=== PATIENT | female | born 1990 | race American Indian/Alaskan Native ===

== ENCOUNTER 2017-09-17 22:54 | Emergency (ER) | payer SELFPAY ==
[2017-09-18 01:30] LABS: Hematocrit 38.6 % (30.3-42.9); Hemoglobin 13.1 gm/dl (10.1-14.3); Mean Corpuscular HGB Conc 34 % (30-34); Mean Corpuscular Hemoglobin 32 pg (28-32); Mean Corpuscular Volume 93 fl (79-97); Platelet Count 263 K/mm3 (140-440); Red Blood Count 4.17 M/mm3 (3.65-5.03); Red Cell Distribution Width 14.2 % (13.2-15.2)
[2017-09-18 01:43] LABS: Basophils % (Auto) 0.4 % (0.0-1.8); Eosinophils # (Auto) 0.2 K/mm3 (0.0-0.4); Eosinophils % (Auto) 2.2 % (0.0-4.3); Lymphocytes # (Auto) 4.4 K/mm3 (1.2-5.4); Lymphocytes % (Auto) 44.9 % (13.4-35.0); Monocytes # (Auto) 0.8 K/mm3 (0.0-0.8); Monocytes % (Auto) 8.2 % (0.0-7.3)
[2017-09-18 08:15] VITALS: BP 112/62
--- NOTE | 2017-09-18 08:45 | Emergency Department Report ---
ED General Adult HPI - General Chief complaint: Vaginal Bleeding Stated complaint: VAGINAL BLEEDING Time Seen by Provider: 09/18/17 08:11 Source: patient Mode of arrival: Ambulatory Limitations: No Limitations - History of Present Illness Initial comments: Patient presents to emergency department with complaint of vaginal bleeding. Patient states that her lastcycle was August 01 and she has had a positive test at home. Patient also complains of some abdominal cramping. Patient denies any other associated symptoms except for nausea. -: Gradual Radiation: non-radiation Severity scale (0 -10): 1 Quality: other (cramping) Consistency: constant Improves with: none Worsens with: none Associated Symptoms: denies other symptoms Treatments Prior to Arrival: none - Related Data Allergies Allergy/AdvReac Type Severity Reaction Status Date / Time No Known Allergies Allergy Unverified 09/18/17 00:46 ED Review of Systems ROS: Stated complaint: VAGINAL BLEEDING Other details as noted in HPI Comment: All other systems reviewed and negative Constitutional: denies: chills, fever Eyes: denies: eye pain, eye discharge, vision change ENT: denies: ear pain, throat pain Respiratory: denies: cough, shortness of breath, wheezing Cardiovascular: denies: chest pain, palpitations Endocrine: no symptoms reported Gastrointestinal: denies: abdominal pain, nausea, diarrhea Genitourinary: denies: urgency, dysuria, discharge Musculoskeletal: denies: back pain, joint swelling, arthralgia Skin: denies: rash, lesions Neurological: denies: headache, weakness, paresthesias Psychiatric: denies: anxiety, depression Hematological/Lymphatic: denies: easy bleeding, easy bruising ED Past Medical Hx - Past Medical History Previous Medical History?: No - Surgical History Past Surgical History?: No - Social History Smoking Status: Never Smoker Substance Use Type: None ED Physical Exam - General Limitations: No Limitations General appearance: alert, in no apparent distress - Head Head exam: Present: atraumatic, normocephalic - Eye Eye exam: Present: normal appearance, PERRL, EOMI - ENT ENT exam: Present: mucous membranes moist - Neck Neck exam: Present: normal inspection - Respiratory Respiratory exam: Present: normal lung sounds bilaterally. Absent: respiratory distress, wheezes, rales, rhonchi - Cardiovascular Cardiovascular Exam: Present: regular rate, normal rhythm. Absent: systolic murmur, diastolic murmur, rubs, gallop - GI/Abdominal GI/Abdominal exam: Present: soft, normal bowel sounds. Absent: distended, tenderness - Rectal Rectal exam: Present: deferred - External exam: Present: other (deferred) Speculum exam: Present: other (deferred) - Extremities Exam Extremities exam: Present: normal inspection - Back Exam Back exam: Present: normal inspection - Neurological Exam Neurological exam: Present: alert, oriented X3, CN II-XII intact. Absent: motor sensory deficit - Psychiatric Psychiatric exam: Present: normal affect, normal mood - Skin Skin exam: Present: warm, dry, intact, normal color. Absent: rash ED Course Vital Signs 09/18/17 09/18/17 00:10 08:14 Temperature 98.4 F Pulse Rate 85 73 Respiratory 18 16 Rate Blood Pressure 110/69 Blood Pressure 112/62 [Left] O2 Sat by Pulse 100 100 Oximetry ED Medical Decision Making - Lab Data Result diagrams: 09/18/17 01:03 - Medical Decision Making Although the patient complains of vaginal discharge she states she is not concerned about STDs and will follow with her [employer] for further testing. STD testing was offered by myself but patient politely declined per above reasoning Discussed results with patient Critical care attestation.: If time is entered above; I have spent that time in minutes in the direct care of this critically ill patient, excluding procedure time. ED Disposition Clinical Impression: Threatened miscarriage Disposition: DC-01 TO HOME OR SELFCARE Is pt being admited?: No Does the pt Need Aspirin: No Condition: Stable Instructions: Threatened Miscarriage (ED) Additional Instructions: Return if symptoms become worse Referrals: PRIMARY CARE, [Primary Care Provider] - 3-5 Days ERICA LUIS MD [Staff Physician] - 3-5 Days Time of Disposition: 10:14
[2017-09-18 09:16] LABS: Bilirubin,Urine NEG (Negative); Blood,Urine NEG (Negative); Color,Urine Yellow (Yellow); Mucus,Urine 3+ /HPF; Protein,Urine <15 mg/dL mg/dL (Negative); Urobilinogen,Urine < 2.0 mg/dL (<2.0)
--- NOTE | 2017-09-18 09:52 | Ultrasound Report ---
FINAL REPORT EXAM: US OB < = 14 WEEKS FETUS HISTORY: vaginal bleeding TECHNIQUE: Early obstetrical ultrasound was performed. PRIORS: None. FINDINGS: There is a gestational sac in the uterus. This contains a small yolk sac and pole. The crown rump length measurement corresponds to a gestational age of 7 weeks 2 days which corresponds to JOEL of 05/05/2018. There is questionably a minimal subchorionic hemorrhage anteriorly. Cardiac activity is identified, measured at 142 beats per minute. There is no abnormal adnexal mass seen. There is blood flow to both ovaries. There is no free fluid. IMPRESSION: There is a single live intrauterine of approximately 7 weeks 2 days gestational age which corresponds to JOEL of 05/05/2018. Questionable minimal subchorionic hemorrhage anteriorly
--- NOTE | 2017-09-18 10:33 | Ultrasound Report ---
FINAL REPORT EXAM: US OB TRANSVAGINAL HISTORY: cramping, bleeding, TECHNIQUE: Early obstetrical ultrasound. Transvaginal study read in conjunction with transabdominal exam performed concurrently. PRIORS: None. FINDINGS: There is a gestational sac in the uterus. This contains a small yolk sac and pole. The crown rump length measurement corresponds to a gestational age of 7 weeks 2 days which corresponds to JOEL of 05/05/2018 Cardiac activity is identified, measured at 142 beats per minute. There is questionably a minimal subchorionic hemorrhage anteriorly. No abnormal adnexal mass. Blood flow seen to both ovaries. IMPRESSION: There is a single live intrauterine of approximately 7 weeks 2 days gestational age which corresponds to JOEL of 05/05/2018. Questionable minimal subchorionic hemorrhage anteriorly.
== END 2017-09-18 10:45 | disposition home or self-care (01) ==
LOC: ED 09-18 02:54
DX: O20.0 Threatened abortion (principal); Z3A.01 Less than 8 weeks gestation of pregnancy
CPT/HCPCS: 36415; 76801; 76817; 81001; 84702; 85025; 86850; 86900; 86901